=== PATIENT | female | born 1995 | race African-American/Black ===

== ENCOUNTER → 2022-06-09 | Emergency (ER) | payer OTHER, MEDICAID ==
[~2022-06-09] VITALS: Ht 167.6 cm; Wt 54.0 kg
[2022-06-09 14:49] VITALS: BP 111/70
== END | disposition left against medical advice (07) ==
LOC: EDBD 13:16 → ER 13:16
DX: S00.93XA Contusion of unspecified part of head, initial encounter (principal); R51.9 Headache, unspecified; Z53.21 Procedure and treatment not carried out due to patient leaving prior to being seen by health care provider; V49.69XA Unspecified car occupant injured in collision with other motor vehicles in traffic accident, initial encounter; Y93.89 Activity, other specified; Y92.89 Other specified places as the place of occurrence of the external cause; Y99.8 Other external cause status